=== PATIENT | male | born 1950 | race Caucasian/White ===

== ENCOUNTER 2022-10-16 16:44 | Emergency (ER) | payer MEDICARE, OTHER, SELFPAY ==
[2022-10-16 16:46] VITALS: BP 146/89; PULSE 89; RESP 14; TEMP 36.2; O2SAT 100; BMI 35.6
[2022-10-16] MEDS: Rivaroxaban 15 MG Tablet PO (17:44)
--- NOTE | 2022-10-16 18:16 | EX.ED.DYSGE1 ---
HPI History of Present Illness Chief Complaint: General Illness Informant: patient Onset/Context/Timing Onset: Today Context: Sudden Onset Timing: Continuous Worsened by: Nothing Relieved by: Nothing Narrative Narrative: Patient presents with pulmonary embolism that was noticed on a an outpatient CT scan today. Patient has a history of colon cancer with metastases to the lungs. Patient had an outpatient CTA which showed right lower lobe segmental and subsegmental pulmonary embolism that is acute. states they were called and told to come to the nearest emergency department for treatment of this. Patient states he has been noncompliant with his Xarelto for the last month. Patient denies any shortness of breath. Patient denies any chest pain. Patient denies any nausea or vomiting. Patient states he feels fine. [facility] Medical History (Updated 10/16/22 @ 18:[address] Andres Lui DO) Colon cancer metastasized to liver Colon cancer metastasized to lung Allergy/AdvReac Type Severity Reaction Status Date / Time No Known Allergies Allergy Verified 10/16/22 16:45 Surgical History (Updated 10/16/22 @ 18:[address] Andres Lui DO) H/O partial resection of colon Social History Smoking Status: Never smoker ROS ROS ED Constitutional Constitutional ED: Denies chills or fever(s) Eyes Eyes: Denies blurry vision or change in vision ENT ENT ED: Denies rhinorrhea or sore throat Cardiovascular Cardiovascular: Denies chest pain or palpitations Respiratory/Chest Respiratory/Chest: Denies cough or dyspnea Gastrointestinal Gastrointestinal: Denies nausea or vomiting Genitourinary Genitourinary ED: Denies dysuria or hematuria Musculoskeletal Musculoskeletal: Denies back pain or neck pain Integumentary Denies abscess or rash Neurologic Neurologic: Denies headache(s) or weakness Allergic/Immunologic Allergic/Immunologic ED: Denies mouth swelling or urticaria EXAM Physical Exam Const Vital Signs: 10/16/22 16:46 10/16/22 17:04 Temperature 97.1 F L Temperature Source Temporal Pulse Rate 89 Respiratory Rate 14 Respiratory Effort Normal Non-Labored Respiratory Pattern Normal Blood Pressure 146/89 H Blood Pressure Mean 108 Pulse Ox 100 Oxygen Delivery Method Room Air Positive well nourished and well developed General Appearance ED: well developed HEENT Reports moist mucous membranes Neck supple and no JVD Resp normal respiratory effort and clear to auscultation bilaterally Cardio regular rate, regular rhythm and no murmurs GI normal to inspection, nondistended, normoactive bowel sounds and non-tender Palpation: soft Extremity normal to inspection General Extremety ED: Negative for edema or tenderness General Extremity: Negative for edema Neuro oriented x3, CN's II-XII intact bilaterally and no sensory deficits noted Sensorium / Orientation: alert Motor Exam: strength 5/5 throughout Psych mental status grossly normal Skin no rashes or lesions noted MDM MDM MDM Narrative Medical decision making narrative: Patient had outpatient labs drawn earlier this month through the [facility] system. These were reviewed and showed a normal renal function and normal electrolytes. Outpatient CT scan of the chest from earlier today was reviewed and showed right lower lobe segmental and subsegmental acute pulmonary embolism. There are also masses in the lung parenchyma that have increased in size from previous CT scan. This was interpreted by the radiologist. Patient was given a dose of Xarelto here. Patient will be restarted on his Xarelto at 15 mg twice daily for 3 weeks then 20 mg daily. states that she has enough pills at home to get him started for 3 weeks on 15 mg twice daily. She states they do not need a new prescription for any more Xarelto. Patient was instructed to follow-up with his primary care physician in 5 to 7 days for further evaluation. Patient was also instructed to follow-up with his oncologist in 5 to 7 days. Patient and spouse understood and were agreeable with the plan. All questions were answered. Discharge Plan Triage Chief Complaint: General Illness ED Provider: Andres Liu Dx/Rx/DC Orders Clinical Impression: Pulmonary embolism, Colon cancer metastasized to liver, Colon cancer metastasized to lung Instructions: Embolism Pulmonary Dc Primary Care Provider: Arian Sam Referrals: Arian Sam MD [Primary Care Provider] - 5-7 Days Activity Restrictions/Additional Instructions: Take Xarelto 15 mg twice daily for 3 weeks then take Xarelto 20 mg daily. You were given your first dose here. Take another dose tonight before bedtime. Then start twice daily tomorrow. Disposition Disposition: Home, Self Care
[2022-10-16 18:26] VITALS: PULSE 81; RESP 15; O2SAT 99
== END 2022-10-16 18:55 | disposition home or self-care (01) ==
PROVIDERS: Emergency Provider Emergency Medicine; Visit Provider Emergency Medicine
DX: I26.99 Other pulmonary embolism without acute cor pulmonale (principal); C78.7 Secondary malignant neoplasm of liver and intrahepatic bile duct; C78.00 Secondary malignant neoplasm of unspecified lung; C18.9 Malignant neoplasm of colon, unspecified
CPT/HCPCS: 99283